=== PATIENT | male | born 1970 | race Two or more races ===

== ENCOUNTER 2019-03-11 20:04 | Emergency (ER) | payer OTHER ==
[~2019-03-11] VITALS: Ht 175.3 cm; Wt 102.1 kg
[2019-03-11 20:22] VITALS: BP 148/91
[2019-03-11] MEDS ORDERED: DOXYCYCLINE MO100 MG ORAL (20:25)
--- NOTE | 2019-03-11 20:26 | Emergency Room Report ---
History of Present Illness General Chief Complaint: Animal Bite Source: Patient Present Illness HPI 48-year-old male presents with dog bite to the left posterior proximal calf, he endorses a little achy pain severity is mild no aggravating or alleviating factors, patient states a pedestrian was walking their dog, a little poodle that then bit him he denies any fevers chills or chest pain Allergies: Coded Allergies: PENICILLINS (Verified Allergy, Mild, Rash, 03/11/19) Patient History Past Medical History: see triage record Reviewed Nursing Documentation: PMH: Agreed; PSxH: Agreed Nursing Documentation-PMH Past Medical History: No Stated History Review of Systems All Other Systems: negative except mentioned in HPI Physical Exam Vital Signs Date Time Temp Pulse Resp B/P (MAP) Pulse Ox O2 Delivery O2 Flow Rate FiO2 03/11/19 20:07 98.2 88 16 148/91 (110) 96 Room Air Sp02 EP Interpretation: reviewed, normal General Appearance: well appearing, no apparent distress, alert Head: normocephalic, atraumatic Eyes: bilateral eye PERRL, bilateral eye EOMI ENT: uvula midline, moist mucus membranes Neck: supple, thyroid normal, supple/symm/no masses Respiratory: no respiratory distress, no retraction, no accessory muscle use Cardiovascular #1: no murmur, no rub Gastrointestinal: no guarding, no rebound Musculoskeletal: normal inspection, other - Left posterior proximal calf, abrasion/bite stacia, no gaping wound, mild erythema no pus or drainage Neurologic: alert, oriented x3 Psychiatric: mood/affect normal Skin: no rash, warm/dry Medical Decision Making Diagnostic Impression: Primary Impression: Dog bite of extremity ER Course Patient presents with left posterior calf dog bite, low suspicion for rabies, dog bite form filled, will provide patient with doxycycline, patient is allergic to penicillin, rash allergy TDAP Wound cleaned Dispo home Last Vital Signs Date Time Temp Pulse Resp B/P (MAP) Pulse Ox O2 Delivery O2 Flow Rate FiO2 03/11/19 20:07 98.2 88 16 148/91 (110) 96 Room Air Disposition: HOME, SELF-CARE Condition: Stable Scripts Doxycycline Monohydrate* (DOXYCYCLINE MONOHYDRATE*) 100 Mg Capsule 100 MG ORAL Q12H for 14 Days, #28 CAP 0 Refills Prov: Jey Larsen MD 03/11/19 Referrals: [facility] Patient Instructions: Animal Bite, Animal Bite, [id number] Additional Instructions: The patient was provided with discharge instructions, notified to follow-up with a primary care doctor and or specialist in the next 24-48 hours, and to return to the ED if they have worsening of their symptoms. Please note that this report is being documented using DRAGON technology. This can lead to erroneous entry secondary to incorrect interpretation by the dictating instrument. Please avoid the sun while taking the antibiotics. Jey Larsen MD Mar 11, 2019 20:26
[2019-03-11] MEDS ORDERED: Tetanus/Diptheria/Pertussis IM ONE ×2 (20:43→20:45)
== END 2019-03-11 20:40 | disposition home or self-care (01) ==
LOC: EMR 20:35
DX: S81.852A Open bite, left lower leg, initial encounter (principal); Y99.0 Civilian activity done for income or pay; Z88.0 Allergy status to penicillin; W54.0XXA Bitten by dog, initial encounter; Y92.9 Unspecified place or not applicable; Z23 Encounter for immunization
CPT/HCPCS: 90471; 90715; 99282